=== PATIENT | male | born 1955 | race Caucasian/White ===

== ENCOUNTER 2016-06-08 09:47 | Emergency (ER) | payer MEDICARE, OTHER ==
[2016-06-08 10:34] VITALS: BP 124/78
--- NOTE | 2016-06-08 13:06 | UC ---
Respiratory Complaint HPI - HPI Summary HPI Summary: Patient here with . Complains of 1x week of congestion and cough. States congestion is primarily in his head but denies GAXIOLA. States he feels some sinus pressure but no pain. Coughing only at night. Patient has never been diagnosed with bronchitis or PNA. would like him to have an antibiotic because of his PMHx of diabetes. - History of Current Complaint Chief Complaint: UCRespiratory Stated Complaint: COUGH,CONGESTION Hx Obtained From: Patient Onset/Duration: Gradual Onset Timing: Constant Severity Initially: Moderate Severity Currently: Moderate Pain Intensity: 5 Pain Scale Used: 0-10 Numeric Character: Cough: Productive - green sputum Associated Signs And Symptoms: Positive: URI, Nasal Congestion, Sinus Discomfort - Risk Factors Pulmonary Embolism Risk Factors: Negative Cardiac Risk Factors: Diabetes Pseudomonas Risk Factors: Negative Tuberculosis Risk Factors: Diabetes - Allergies/Home Medications Allergies/Adverse Reactions: Allergies Allergy/AdvReac Type Severity Reaction Status Date / Time Lorazepam [From Ativan] Allergy Unknown tongue Verified 06/08/16 10:25 swelling? Metoclopramide [From Reglan] Allergy Unknown tongue Verified 06/08/16 10:25 swelling? Oxycodone AdvReac Intermediate GI Upset Verified 06/08/16 10:25 Prednisone AdvReac Intermediate GI Upset Verified 06/08/16 10:25 Home Medications: Home Medications Gabapentin CAP(*) [Neurontin 300 CAP(*)] 300 mg PO TID 06/08/16 [History Confirmed 06/08/16] PMH/Surg Hx/FS Hx/Imm Hx Previously Healthy: Yes Endocrine History Of: Reports: Diabetes - ON MEDS Denies: Thyroid Disease Cardiovascular History Of: Reports: Hypertension Denies: Cardiac Disorders, Pacemaker/ICD, Congestive Heart Failure Respiratory History Of: Denies: COPD, Asthma GI/ History Of: Denies: Ulcer, Kidney Stones, Renal Disease Psychological History Of: Reports: Anxiety, Depression - Surgical History Surgical History: Yes Surgery Procedure, Year, and Place: VASECTOMY - Family History Known Family History: Positive: Diabetes - MOTHER AND FATHER - Social History Occupation: Unemployed Lives: With Family Alcohol Use: None Substance Use Type: None Smoking Status (MU): Never Smoked Tobacco - Immunization History Most Recent Influenza Vaccination: Fall 2013 Most Recent Tetanus Shot: up to date Most Recent Pneumonia Vaccination: up to date Review of Systems Constitutional: Negative Skin: Negative Eyes: Negative ENT: Sore Throat, Nasal Discharge Respiratory: Cough Cardiovascular: Negative Gastrointestinal: Negative Motor: Negative Musculoskeletal: Negative Neurological: Negative All Other Systems Reviewed And Are Negative: Yes Physical Exam Triage Information Reviewed: Yes Appearance: Well-Appearing, No Pain Distress, Well-Nourished Vital Signs: Initial Vital Signs Temp 98.1 F 06/08/16 10:29 Pulse 90 06/08/16 10:29 Resp 18 06/08/16 10:29 BP 124/78 06/08/16 10:29 Pulse Ox 98 06/08/16 10:29 Vital Signs Reviewed: Yes Eye Exam: Normal Eyes: Positive: Conjunctiva Clear ENT Exam: Normal ENT: Positive: Pharynx normal, Nasal drainage Dental Exam: Normal Neck exam: Normal Neck: Positive: Supple, Nontender, No Lymphadenopathy Respiratory Exam: Normal Respiratory: Positive: Chest non-tender, Lungs clear Cardiovascular Exam: Normal Musculoskeletal Exam: Normal Musculoskeletal: Positive: Strength Intact, ROM Intact Neurological Exam: Normal Psychological Exam: Normal Psychological: Positive: Normal Response To Family, Age Appropriate Behavior Diagnostic Evaluation - Laboratory O2 Sat by Pulse Oximetry: 98 Respiratory Course/Dx - Course Course Of Treatment: Patient and educated at length regarding antibiotic use. provider feels this is upper respiratory and viral in nature. lungs clear. mild symptoms x1 week and no history of PNA or bronchitis. patient discharged with specific return precautions, cough medication and cepacol tabs. encouraged patient to obtain a humidifier in the home and drink plenty of fluids. will follow up with PCP or return to is symptoms worsen and will obtain a chest xray at that time. timeline of typical viral infection infromation given to luis. patient agrees with plan. - Differential Dx/Diagnosis Differential Diagnosis/HQI/PQRI: Bronchitis, Influenza, Lower Resp Infection, Sinusitis Provider Diagnoses: URI - Physician Notification/Consults Instructed by Provider To: Have Pt Call For Appt. Discharge - Discharge Plan Condition: Stable Disposition: HOME Prescriptions: Dextromethorphan-Guaifenesin [Mucinex Dm Maximum Streng 60-1200 mg] 1 tab PO BID #20 tab MDD 2 Humidifiers [Humidifier 2 Gallon] 1 mis .SEE ORDER BEDTIME PRN #1 mis PRN Reason: Cough Menthol (Mouth-Throat) [Cepacol Sore Throat] 5.4 mg MT Q4HR #30 kana Patient Education Materials: Upper Respiratory Infection (ED) Referrals: Jackson Oseguera MD [Primary Care Provider] - Additional Instructions: Humidifier in the home will help. take medications as prescribed to you. follow up with your PCP or come back to UC if symptoms fail to improve or worsen.
== END 2016-06-08 11:27 | disposition home or self-care (01) ==
LOC: UCCORT 09:47
DX: J06.9 Acute upper respiratory infection, unspecified (principal); E11.9 Type 2 diabetes mellitus without complications; I10 Essential (primary) hypertension; Z88.5 Allergy status to narcotic agent; Z88.8 Allergy status to other drugs, medicaments and biological substances
CPT/HCPCS: 99212; G0463

== ENCOUNTER 2016-06-11 10:11 | Emergency (ER) | payer MEDICARE, OTHER ==
[2016-06-11 12:04] VITALS: BP 139/85
--- NOTE | 2016-06-11 12:24 | UC ---
Eye Complaint HPI - HPI Summary HPI Summary: patient has had purulent drainage, eye redness and itching for 2 days. other mild cold symptoms as well. - History of Current Complaint Chief Complaint: UCEye Stated Complaint: EYE IRRITATION Time Seen by Provider: 06/11/16 12:10 Hx Obtained From: Patient Onset/Duration: Sudden Onset, Lasting Days Timing: Constant Severity Initially: Mild Severity Currently: Mild Pain Intensity: 3 Pain Scale Used: 0-10 Numeric Location of Injury: Conjunctiva, Sclera Character: Foreign Body Sensation Alleviating Factor(s): Nothing Associated Signs And Symptoms: Positive: Drainage (Purulent) - Risk Factors Penetrating Injury Risk Factor: Negative Globe Rupture Risk Factors: Negative Acute Glaucoma Risk Factors: Negative Optic Artery Occlusion Risk Factors: Negative - Allergies/Home Medications Allergies/Adverse Reactions: Allergies Allergy/AdvReac Type Severity Reaction Status Date / Time Lorazepam [From Ativan] Allergy Unknown tongue Verified 06/11/16 12:04 swelling? Metoclopramide [From Reglan] Allergy Unknown tongue Verified 06/11/16 12:04 swelling? Oxycodone AdvReac Intermediate GI Upset Verified 06/11/16 12:04 Prednisone AdvReac Intermediate GI Upset Verified 06/11/16 12:04 PMH/Surg Hx/FS Hx/Imm Hx Previously Healthy: Yes Endocrine History Of: Reports: Diabetes - ON MEDS Denies: Thyroid Disease Cardiovascular History Of: Reports: Hypertension Denies: Cardiac Disorders, Pacemaker/ICD, Congestive Heart Failure Respiratory History Of: Denies: COPD, Asthma GI/ History Of: Denies: Ulcer, Kidney Stones, Renal Disease Psychological History Of: Reports: Anxiety, Depression - Surgical History Surgical History: Yes Surgery Procedure, Year, and Place: VASECTOMY - Family History Known Family History: Positive: Diabetes - MOTHER AND FATHER - Social History Alcohol Use: None Substance Use Type: None Smoking Status (MU): Never Smoked Tobacco - Immunization History Most Recent Influenza Vaccination: Fall 2013 Most Recent Tetanus Shot: up to date Most Recent Pneumonia Vaccination: up to date Review of Systems Constitutional: Negative Skin: Negative Eyes: Drainage, Eye Redness ENT: Sore Throat, Nasal Discharge Respiratory: Cough Cardiovascular: Negative Gastrointestinal: Negative Genitourinary: Negative Motor: Negative Neurovascular: Negative Musculoskeletal: Negative Neurological: Negative Psychological: Negative All Other Systems Reviewed And Are Negative: Yes Physical Exam Triage Information Reviewed: Yes Appearance: No Pain Distress, Well-Nourished, Ill-Appearing Vital Signs: Initial Vital Signs Temp 97.9 F 06/11/16 11:57 Pulse 92 06/11/16 11:57 Resp 14 06/11/16 11:57 BP 139/85 06/11/16 11:57 Pulse Ox 97 06/11/16 11:57 Vital Signs Reviewed: Yes Eye Exam: Normal Eyes: Positive: Conjunctiva Inflamed, Discharge ENT Exam: Normal ENT: Positive: Pharyngeal erythema, Nasal congestion, Nasal drainage Dental Exam: Normal Neck: Positive: Supple, Nontender, No Lymphadenopathy Respiratory Exam: Normal Respiratory: Positive: Chest non-tender, Lungs clear, Normal breath sounds Cardiovascular Exam: Normal Cardiovascular: Positive: RRR, No Murmur, Pulses Normal Abdominal Exam: Normal Abdomen Description: Positive: Nontender, No Organomegaly, Soft Bowel Sounds: Positive: Present Musculoskeletal Exam: Normal Musculoskeletal: Positive: Strength Intact, ROM Intact, No Edema Neurological Exam: Normal Neurological: Positive: Alert, Muscle Tone Normal Psychological Exam: Normal Skin Exam: Normal Eye Complaint Course/Dx - Course Course Of Treatment: history obtained, exam performed, medications prescribed. - Differential Dx/Diagnosis Differential Diagnosis/HQI/PQRI: Conjunctivitis, Foreign Body, Periorbital Cellulitis, Orbital Cellulitis Provider Diagnoses: left eye bacterial conjunctivitis. pharyngitis Discharge - Discharge Plan Condition: Stable Disposition: HOME Prescriptions: Erythromycin OPHTH.OINT* [Ilotycin OPHTH.OINT*] 1 applic LEFT EYE TID #1 tube Patient Education Materials: Conjunctivitis (ED) Additional Instructions: Take the medication as prescribed. for 5 days. If symptoms appear in the right eye, please start using in the right eye as well. Follow up for any increase in symptoms even with treatment.
== END 2016-06-11 12:32 | disposition home or self-care (01) ==
LOC: UCCORT 10:11
DX: H10.89 Other conjunctivitis (principal); J02.9 Acute pharyngitis, unspecified; Z88.5 Allergy status to narcotic agent; Z88.8 Allergy status to other drugs, medicaments and biological substances; E11.9 Type 2 diabetes mellitus without complications; I10 Essential (primary) hypertension
CPT/HCPCS: 99212; G0463

== ENCOUNTER 2016-09-15 20:33 | Emergency (ER) | payer MEDICARE ==
[2016-09-15 20:43] VITALS: BP 126/77
[2016-09-15 21:26] LABS: Hematocrit 40 % (42-52); Hemoglobin 13.3 g/dl (14.0-18.0); Mean Corpuscular HGB Conc 33 g/dl (31-36); Mean Corpuscular Hemoglobin 28 pg (27-31); Mean Corpuscular Volume 85 fL (80-94); Mean Platelet Volume 8 um3 (7.4-10.4); Red Cell Distribution Width 14 % (10.5-15); White Blood Count 10.4 10^3/ul (3.5-10.8)
[2016-09-15 21:40] LABS: Albumin 3.9 g/dL (3.2-5.2); BUN/Creatinine Ratio 16.7 (8-20); C Reactive Protein 1.68 mg/L (< 5.00); Calcium 9.2 mg/dL (8.6-10.3); EGFR African American 74.8 (>60); EGFR Non-African American 58.2 (>60); Globulin 2.9 g/dL (2-4); Potassium 4.2 mmol/L (3.5-5.0); Total Bilirubin 0.5 mg/dL (0.2-1.0); Total Protein 6.8 g/dL (6.4-8.9)
--- NOTE | 2016-09-15 21:51 | ED ---
Abdominal Pain/Male - HPI Summary HPI Summary: Patient presents with 5 days of RLQ and groin pain. He denies known trauma or incident, but knows he has a hernia he was told about years ago. He thought he was wearing his belt too tightly, so he loosened his belt and it didn't make a difference. He can not think of any heavy lifting he has done, and has not fallen. His pain is with movement and does not radiate. He denies fever, chills , N/V/D, urinary or bowel symptoms. He denies scrotal pain or penile discharge. He is sexually monogamous with his . His appetite is intact. He denies CP, SOB, or back pain. 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 Metoclopramide [From Reglan] Allergy Unknown tongue Verified 06/11/16 12:04 swelling? Oxycodone AdvReac Intermediate GI Upset Verified 06/11/16 12:04 Prednisone AdvReac Intermediate GI Upset Verified 06/11/16 12:04 PMH/Surg Hx/FS Hx/Imm Hx Endocrine/Hematology History: Reports: Hx Diabetes - ON MEDS Denies: Hx Thyroid Disease Cardiovascular History: Reports: Hx Hypercholesterolemia, Hx Hypertension Denies: Hx Congestive Heart Failure, Hx Pacemaker/ICD Respiratory History: Denies: Hx Asthma, Hx Chronic Obstructive Pulmonary Disease (COPD) GI History: Reports: Hx Diverticulosis, Hx Gastroesophageal Reflux Disease, Other GI Disorders - INTUSSUSEPTION 2006, 2013 Denies: Hx Crohn's Disease, Hx Ulcer History: Reports: Other Problems/Disorders - VASECTOMY Denies: Hx Kidney Stones, Hx Renal Disease Musculoskeletal History: Reports: Hx Arthritis - shoulders, Hx Back Problems, Other Musculoskeletal History - arthritis Denies: Hx Scoliosis Sensory History: Reports: Hx Contacts or Glasses - Reading Glasses Denies: Hx Hearing Aid Opthamlomology History: Reports: Hx Contacts or Glasses - Reading Glasses Neurological History: Reports: Other Neuro Impairments/Disorders - CHRONIC LBP, ARTHRITIS IN [place].SHOULDERS Denies: Hx Headaches Psychiatric History: Reports: Hx Anxiety, Hx Depression Denies: Hx Panic Disorder - Surgical History Surgery Procedure, Year, and Place: VASECTOMY Hx Anesthesia Reactions: No Infectious Disease History: No Infectious Disease History: Denies: Hx Clostridium Difficile, Hx Hepatitis, Hx Human Immunodeficiency Virus (HIV), Hx of Known/Suspected MRSA, Hx Shingles, Hx Tuberculosis, Hx Known/ Suspected VRE, Hx Known/Suspected VRSA, History Other Infectious Disease, Traveled Outside the in Last 30 Days - Family History Known Family History: Positive: Diabetes - MOTHER AND FATHER - Social History Occupation: Retired Lives: With Family Alcohol Use: None Substance Use Type: Reports: None Smoking Status (MU): Never Smoked Tobacco Review of Systems Negative: Fever, Chills Negative: Chest Pain Negative: Shortness Of Breath Positive: Abdominal Pain - RLQ Positive: no symptoms reported, other - groin All Other Systems Reviewed And Are Negative: Yes Physical Exam Triage Information Reviewed: Yes Vital Signs On Initial Exam: Initial Vitals Temp Pulse Resp BP Pulse Ox 97.7 F 92 16 126/77 99 09/15/16 20:35 09/15/16 20:35 09/15/16 20:35 09/15/16 20:35 09/15/16 20:35 Vital Signs Reviewed: Yes Appearance: Positive: Well-Appearing, Well-Nourished, Pain Distress Skin: Positive: Warm, Skin Color Reflects Adequate Perfusion, Dry, Soft Head/Face: Positive: Normal Head/Face Inspection Eyes: Positive: EOMI, NICKIE, Conjunctiva Clear ENT: Positive: Hearing grossly normal Respiratory/Lung Sounds: Positive: Clear to Auscultation, Breath Sounds Present Cardiovascular: Positive: RRR Abdomen Description: Positive: Nontender, Soft. Negative: CVA Tenderness (R), CVA Tenderness (L), Distended, Guarding, McBurney's Point Tenderness, Peritoneal Signs Bowel Sounds: Positive: Present Male Genital Exam: Positive: normal genitalia, no hernia, epididymal tenderness - right, inguinal tenderness - right. Negative: scrotum tenderness (R), scrotum tenderness (L), testicular tenderness (R), testicular tenderness (L) Musculoskeletal: Positive: Strength/ROM Intact. Negative: Edema Left, Edema Right Neurological: Positive: Sensory/Motor Intact, Alert, Oriented to Person Place, Time, NV Bundle Intact Distally Psychiatric: Positive: Affect/Mood Appropriate AVPU Assessment: Alert - Bubba Coma Scale Coma Scale Total: 15 Diagnostics - Vital Signs Vital Signs Temp Pulse Resp BP Pulse Ox 09/15/16 20:40 97.7 F 92 16 126/77 99 09/15/16 20:35 97.7 F 92 16 126/77 99 - Laboratory Lab Results: Lab Results 09/15/16 09/15/16 09/15/16 Range/Units 21:15 21:15 21:15 WBC 10.4 (3.5-10.8) 10^3/ul RBC 4.70 (4.0-5.4) 10^6/ul Hgb 13.3 L (14.0-18.0) g/dl Hct 40 L (42-52) % MCV 85 (80-94) fL MCH 28 (27-31) pg MCHC 33 (31-36) g/dl RDW 14 (10.5-15) % Plt Count 276 (150-450) 10^3/ul MPV 8 (7.4-10.4) um3 Neut % (Auto) 57.4 (38-83) % Lymph % (Auto) 29.1 (25-47) % [place] % (Auto) 9.3 H (1-9) % Eos % (Auto) 2.9 (0-6) % Baso % (Auto) 1.3 (0-2) % Absolute Neuts (auto) 5.9 (1.5-7.7) 10^3/ul Absolute Lymphs (auto) 3.0 (1.0-4.8) 10^3/ul Absolute Monos (auto) 1.0 H (0-0.8) 10^3/ul Absolute Eos (auto) 0.3 (0-0.6) 10^3/ul Absolute Basos (auto) 0.1 (0-0.2) 10^3/ul Absolute Nucleated RBC 0.01 10^3/ul Nucleated RBC % 0.1 Sodium 136 (133-145) mmol/L Potassium 4.2 (3.5-5.0) mmol/L Chloride 104 (101-111) mmol/L Carbon Dioxide 24 (22-32) mmol/L Anion Gap 8 (2-11) mmol/L BUN 21 (6-24) mg/dL Creatinine 1.26 H (0.67-1.17) mg/dL Est GFR ( Amer) 74.8 (>60) Est GFR (Non-Af Amer) 58.2 (>60) BUN/Creatinine Ratio 16.7 (8-20) Glucose 167 H (70-100) mg/dL Lactic Acid 2.6 H* (0.5-2.0) mmol/L Calcium 9.2 (8.6-10.3) mg/dL Total Bilirubin 0.50 (0.2-1.0) mg/dL AST 13 (13-39) U/L ALT 18 (7-52) U/L Alkaline Phosphatase 45 (34-104) U/L Troponin I 0.00 (<0.04) ng/mL C-Reactive Protein 1.68 (< 5.00) mg/L Total Protein 6.8 (6.4-8.9) g/dL Albumin 3.9 (3.2-5.2) g/dL Globulin 2.9 (2-4) g/dL Albumin/Globulin Ratio 1.3 (1-3) Amylase 61 (29-103) U/L Lipase 46 (11.0-82.0) U/L Result Diagrams: 09/15/16 21:15 09/15/16 21:15 Lab Statement: Any lab studies that have been ordered have been reviewed, and results considered in the medical decision making process. - Ultrasound No standard instances Ultrasound Interpretation: No Acute Changes Ultrasound Interpretation Completed By: Radiologist Abdominal Pain Fem Course/Dx - Course Course Of Treatment: Patient was unable to produce a urine sample since he voided just before he came to the ED. He has a follow-up appointment with his PCP on Sunday and has a relationship with Dr. Thomas as well. He understands to return to the ED if symptoms worsen. - Diagnoses Differential Diagnosis/HQI/PQRI: Appendicitis, Bowel Obstruction, Epididymitis, Prostatitis, Testicular Torsion, Urinary Tract Infection Provider Diagnoses: Right groin pain Discharge - Discharge Plan Condition: Stable Disposition: HOME Patient Education Materials: Groin Pain (ED) Referrals: Jackson Oseguera MD [Primary Care Provider] - Additional Instructions: Your ultrasound was negative for acute findings. Please follow-up with your PCP as scheduled on Sunday for further evaluation and discussion of treatment options. You can use 600mg of ibuprofen three times daily with meals for pain. Return to the emergency department if symptoms worsen.
--- NOTE | 2016-09-15 22:51 | RAD ---
Indication: Right groin pain. Real-time sonography of the scrotum was performed. The right testis measures 4.4 x 2.3 x 2.9 cm. No intratesticular masses are noted. Normal flow is noted in the right testis. The epididymis measures 8 x 13 mm. No hydrocele is noted. The left testis measures 4.5 x 2.4 x 3.0 cm. No intratesticular masses are noted. Normal flow is noted in the left testis. The left epididymis measures 10 x 10 mm. Trace left hydrocele is noted. IMPRESSION: No intratesticular masses or torsion is identified. Trace left hydrocele is noted.
== END 2016-09-16 00:08 | disposition home or self-care (01) ==
LOC: ED 20:33
DX: R10.31 Right lower quadrant pain (principal)
CPT/HCPCS: 36415; 76870; 80053; 82150; 83605; 83690; 84484; 85025; 86140; 99282

== ENCOUNTER 2016-10-13 08:30 | Day surgery (SDC) | payer MEDICARE ==
--- NOTE | 2016-10-05 15:52 | HP ---
PREOP HISTORY AND PHYSICAL: DATE OF ADMISSION/OPERATION: 10/13/16 [facility] CHIEF COMPLAINT: Locking and clicking of the left middle finger. HISTORY OF PRESENT ILLNESS: Michael is a 60-year-old male who complains of locking and clicking of his left middle finger for the past 2-1/2 years. He has had cortisone injections. These have given him relief, but they are no longer giving him lasting relief of his symptoms. He presents now for left middle finger trigger release. PAST MEDICAL HISTORY: Significant for back pain and cervical spondylosis as well as lumbar spondylosis, also ulnar nerve compression, anxiety, hypertension , gastroesophageal reflux disease, and type 2 diabetes. PAST SURGICAL HISTORY: Vasectomy. FAMILY HISTORY: Diabetes. SOCIAL HISTORY: He is currently out of work due to his back problem. He lives with his . He denies tobacco and alcohol use. REVIEW OF SYSTEMS: Negative for cephalic, cardiovascular, respiratory symptoms. Positive for reflux symptoms. Negative for genitourinary, skin, neurologic, hematologic symptoms. Positive for controlled diabetes and positive for back pain. Recently was scheduled to have back surgery, but the surgery was canceled. PHYSICAL EXAMINATION GENERAL: He is a healthy-appearing male, in minimal distress at rest. VITAL SIGNS: He is 68 inches tall, weighs 170 pounds, pulse 64, blood pressure 132/80, respirations 16, temperature 97.7. HEENT: Unremarkable. He has good range of motion of his neck with minimal pain. No masses are palpated. His eye movements are concentric. PULMONARY: His lungs are clear to auscultation. Good inspiratory effort. No wheezing. CARDIAC: Regular rate and rhythm. No murmurs. PERIPHERAL VASCULAR: He has palpable pulses and no peripheral edema. NEUROLOGIC: He is alert and oriented without focal deficit. EXTREMITY: He does ambulate with a bit of a limp due to his back problem. He has tenderness to A1 aminta of his left middle finger and locking in flexion. SKIN: Intact. Neurovascular function is intact in his left hand. IMPRESSION: Left middle finger trigger finger. PLAN: The plan is for left middle finger trigger finger release. The surgical procedure, risks, and benefits were explained to the patient today and he agrees to proceed. Prescription for Ultracet was sent to his pharmacy. We will see him back in followup 10 to 14 days postop. [id number]/[facility] #: [id number] [facility]
[~2016-10-13 08:30] MED LIST: Buffered Lidocaine 1% SYR 3ML* 3 ML/SYR SYRINGE INTRADERM ONE; DiMENhydriNATE IV* 50 MG/ML VIAL IV PUSH PRN; Famotidine IV* 10 MG/ML 2 ML (20 mg) IV ONE; Famotidine IV* 10 MG/ML 2 ML (20 mg) ONE; Ondansetron INJ* 2 MG/ML VIAL IV PRN; PROCHLORPERAZINE INJ 5 MG/ML 2 ML VIAL IV PRN; fentaNYL* 50 MCG/ML 2 ML VIAL (100 MCG VIAL) IV PRN
[2016-10-13] MEDS ORDERED: HYDROmorphone* 1 MG/ML 1 ML SYR ONE (09:01)
[2016-10-13] MEDS ORDERED: Midazolam* 1 MG/ML 2 ML VIAL (2 MG) ONE (09:02)
[2016-10-13] MEDS ORDERED: Lidocaine 1% INJ* 10 MG/ML 30 ML SDV ONE (10:00)
[2016-10-13] MEDS ORDERED: Propofol* 10 MG/ML 20 ML BTL IV PUSH ONE (10:56)
[2016-10-13] MEDS ORDERED: Lidocaine 2% PF * 5 ML VIAL ONE (10:56)
[2016-10-13] MEDS ORDERED: fentaNYL* 50 MCG/ML 2 ML VIAL (100 MCG VIAL) ONE ×2 (10:57)
[2016-10-13 11:03] VITALS: BP 124/76
--- NOTE | 2016-10-13 23:45 | OP ---
DATE OF OPERATION: 10/13/16 [facility] DATE OF : 53 SURGEON: Tenisha Welch MD KILN TRANSFER OPERATOR: LIN Cosme ANESTHESIOLOGIST: Gee Argueta MD ANESTHESIA: Local MAC. PRE-OP DIAGNOSIS: Left long finger trigger finger. POST-OP DIAGNOSIS: Left long finger trigger finger. OPERATIVE PROCEDURE: Left long finger trigger release. ESTIMATED BLOOD LOSS: Zero. TOURNIQUET TIME: About 10 minutes. INDICATIONS FOR PROCEDURE: Michael is a 60-year-old male who has long history of locking and pain in his left long finger. He presents for trigger finger release. DESCRIPTION OF PROCEDURE: The patient was brought to the operating room. He was given sedation anesthetic and a local infiltration of 10 cc of of 1% plain lidocaine. The skin of his left hand and forearm were prepped and draped in the usual sterile fashion. The hand and forearm were exsanguinated and the tourniquet elevated to 250 mmHg. A transverse incision was made, centered over the A1 aminta of the left long finger. We dissected through the subcutaneous tissue down to the A1 aminta. The digital neurovascular bundles were retracted by the retail event and sales assistant Margie Moreau. The A1 aminta was incised longitudinally completely releasing the flexor tendons, which were in good condition. The wound was irrigated and skin edges reapproximated with 4-0 nylon suture. The wound was dressed with Xeroform, 4x4, Webril, and an Sonido wrap. The patient tolerated the procedure well and was brought to the recovery room in good condition. [id number]/[facility] #: [id number] [facility]
== END 2016-10-13 11:16 | disposition home or self-care (01) ==
LOC: OREAST 08:30
PROVIDERS: ATTEND Orthopaedic Surgery
DX: M65.332 Trigger finger, left middle finger (principal); E11.9 Type 2 diabetes mellitus without complications; I10 Essential (primary) hypertension
CPT/HCPCS: J1170; J2001; J2250; J2704; J3010

== ENCOUNTER 2017-09-14 19:14 | Emergency (ER) | payer MEDICARE ==
[2017-09-14 20:44] VITALS: BP 124/77
[2017-09-14] MEDS ORDERED: DOXYcycline CAP(*) 100 MG PO ONE (21:02)
--- NOTE | 2017-09-14 21:05 | UC ---
UC General HPI - HPI Summary HPI Summary: pt is c/o a cough with chest congestion for 2 weeks. no hx asthma. no fever. not improving. - History of Current Complaint Stated Complaint: CHEST&SINUS FARRUKH, COUGH Time Seen by Provider: 09/14/17 20:34 Hx Obtained From: Patient Onset/Duration: Gradual Onset Timing: Constant Pain Intensity: 0 Aggravating: nothing Alleviating: nothing Associated Signs & Symptoms: Positive: Cough. Negative: Chest Pain, Fever - Allergy/Home Medications Allergies/Adverse Reactions: Allergies Allergy/AdvReac Type Severity Reaction Status Date / Time lorazepam Allergy Swelling Verified 09/14/17 20:48 metoclopramide [From Reglan] Allergy Swelling Verified 09/14/17 20:48 oxycodone AdvReac GI Upset Verified 09/14/17 20:48 prednisone AdvReac GI Upset Verified 09/14/17 20:48 Home Medications: Home Medications Atorvastatin Calcium [Lipitor] 40 mg PO DAILY 09/14/17 [History Confirmed ] Biotin [Ultra Biotin] 5 mg PO DAILY 09/14/17 [History Confirmed 09/14/17] Finasteride TAB* [Proscar TAB*] 5 mg PO DAILY 09/14/17 [History Confirmed ] PMH/Surg Hx/FS Hx/Imm Hx - Additional Past Medical History Additional PMH: spinal stenosis Endocrine History: Diabetes Cardiovascular History: Hypertension Psychological History: Anxiety - Surgical History Surgical History: Yes Surgery Procedure, Year, and Place: VASECTOMY IN MD OFFICE (NO ANESTHESIA). Hand surgery - Family History Known Family History: Positive: Diabetes - MOTHER AND FATHER - Social History Occupation: Disabled Lives: With Family Alcohol Use: None Substance Use Type: Prescribed Substance Use Comment - Amount & Last Used: PRN PAIN MEDS Smoking Status (MU): Never Smoked Tobacco - Immunization History Most Recent Influenza Vaccination: Fall 2013 Most Recent Tetanus Shot: up to date Most Recent Pneumonia Vaccination: up to date Vaccination Up to Date: Yes Review of Systems Constitutional: Negative Skin: Negative Eyes: Negative ENT: Negative Respiratory: Cough Cardiovascular: Negative Gastrointestinal: Negative Genitourinary: Negative Motor: Negative Neurovascular: Negative Musculoskeletal: Negative Neurological: Negative Psychological: Negative Is Patient Immunocompromised?: No All Other Systems Reviewed And Are Negative: Yes Physical Exam Triage Information Reviewed: Yes Appearance: Well-Appearing Vital Signs: Initial Vital Signs Temp 98.4 F 09/14/17 20:41 Pulse 89 09/14/17 20:41 Resp 16 09/14/17 20:41 BP 124/77 09/14/17 20:41 Pulse Ox 99 09/14/17 20:41 Vital Signs Reviewed: Yes Eyes: Positive: Conjunctiva Clear ENT: Positive: Pharynx normal, TMs normal. Negative: Nasal congestion, Nasal drainage Neck: Positive: Supple, Nontender, No Lymphadenopathy Respiratory: Positive: Normal breath sounds, Decreased breath sounds, Other: - cough is frequent and congested Cardiovascular: Positive: RRR, No Murmur Abdomen Description: Positive: Nontender, No Organomegaly, Soft Bowel Sounds: Positive: Present Musculoskeletal: Positive: ROM Intact Neurological: Positive: Alert Psychological: Positive: Age Appropriate Behavior Skin Exam: Normal Course/Dx - Course Course Of Treatment: pt ill x 2 weeks with no improvement thus will cover for rpesumptivebacterial infection. - Differential Dx - Multi-Symptom Provider Diagnoses: cough Discharge - Sign-Out/Discharge Documenting (check all that apply): Discharge - Discharge Plan Condition: Stable Disposition: HOME Prescriptions: Benzonatate CAP* [Tessalon 100 MG CAP*] 100 mg PO TID PRN #6 cap PRN Reason: Cough DOXYcycline CAP(*) [DOXYcycline 100MG CAP(*)] 100 mg PO BID #14 cap Patient Education Materials: Acute Cough (ED) Referrals: Jackson Oseguera MD [Primary Care Provider] - 5 Days - Billing Disposition and Condition Condition: STABLE Disposition: HOME
== END 2017-09-14 21:13 | disposition home or self-care (01) ==
LOC: UCCORT 19:14
DX: R05 Cough (principal); Z88.5 Allergy status to narcotic agent; Z88.8 Allergy status to other drugs, medicaments and biological substances
CPT/HCPCS: 99212; A9270-GY; G0463

== ENCOUNTER 2017-11-06 07:02 | Day surgery (SDC) | payer MEDICARE ==
--- NOTE | 2017-10-25 16:28 | HP ---
PREOPERATIVE HISTORY AND PHYSICAL: DATE OF SURGERY/ADMISSION: 11/06/17 DATE OF OFFICE VISIT/ENCOUNTER: 10/24/17 ATTENDING SURGEON: Tenisha Welch MD.* (DICTATED BY LIN MARISCAL) PROCEDURE: Right index finger trigger finger release. CHIEF COMPLAINT: Right index finger triggering. HISTORY OF PRESENT ILLNESS: This is a 61-year-old male, who complains of clicking and locking of his right index finger, this has been going on for several months now. He has had a cortisone injection in the past with minimal improvement. He has had trigger finger releases performed on other fingers and has had a good outcome. He is now interested in pursuing a trigger finger release of his right index finger. PAST MEDICAL HISTORY: 1. Back pain including cervical spondylosis and lumbar spondylosis. 2. Hypertension. 3. Anxiety. 4. GERD. 5. Diabetes. PAST SURGICAL HISTORY: 1. Left middle finger trigger finger release. 2. Vasectomy. MEDICATIONS: 1. Aspirin 81 mg daily. 2. B12 methylcobalamin 1000 mcg daily. 3. Clonazepam 0.5 mg 1 tab q.h.s. and a half-tab to one tab p.r.n. 4. Colestipol HCl daily. 5. Diclofenac sodium 50 mg 2 times a day. 6. Fish oil 1200 mg daily. 7. Gabapentin 300 mg 3 times a day. 8. Metformin HCl 1000 mg twice a day. 9. Omeprazole 40 mg 2 tabs daily. 10. Onglyza 5 mg daily. 11. Terbinafine HCl 1% apply to affected area. 12. Vitamin D3 daily. ALLERGIES: ATIVAN, OXYCODONE, PREDNISONE, REGLAN, reaction unknown. FAMILY MEDICAL HISTORY: Diabetes. SOCIAL HISTORY: He is not currently employed secondary to back problem. He denies tobacco use, recreational drug use, and does not drink alcohol. REVIEW OF SYSTEMS: General: Negative for fevers, chills or night sweats, unexplained weight loss, gain. No known anesthesia problems. HEENT: Negative for headache, lightheadedness, syncopal episodes, visual changes. Integumentary : Negative for abrasions, lesions, open wounds. Cardiothoracic: Negative for hypertension, chest pain, palpitations, edema. Respiratory: Negative for shortness of breath with exertion, chronic cough, wheezing. GI: Positive for reflux symptoms. Negative for nausea, vomiting, diarrhea, or constipation. : Negative for nocturia, urinary frequency, urgency, history of UTIs, kidney problems. Musculoskeletal: Positive for current complaint. Positive for chronic back pain. Neurological: Positive for anxiety. Negative for paresthesias, numbness, history of seizure or stroke. Endocrine: Negative for diabetes and thyroid issues. Hematologic: Negative for easy bruising, anemia, bleeding disorder, history of DVT. Infectious Disease: Negative for history of MRSA, hepatitis C, HIV. PHYSICAL EXAMINATION GENERAL: Well-developed, well-nourished 61-year-old male, in no acute distress. VITAL SIGNS: Height 5 feet 8 inches, weight 170 pounds. Pulse rate 68, blood pressure 120/74. HEENT: Normocephalic, atraumatic. Pupils are equal, round, and reactive to light and accommodation. Extraocular movements are intact. Throat is clear. NECK: Supple. No palpable lymph node. PULMONARY: Lungs are clear to auscultation bilaterally. No wheezes, rales, or rhonchi. CARDIOVASCULAR: Regular rate and rhythm. S1, S2. No murmurs, rubs, or gallops. No edema. ABDOMEN: Positive bowel sounds, soft, nontender. NEUROLOGIC: Alert and oriented x3. Cranial nerves II through XII are intact. Sensation is intact to light touch. MUSCULOSKELETAL: On exam of his right index finger, there is no visible swelling. He has tenderness to palpation at the A1 aminta and intermittent triggering with range of motion. Neurovascular function is intact. IMPRESSION: Right index finger trigger finger. PLAN: The patient is scheduled to undergo right index finger trigger finger release with Dr. Welch on 11/06/17. He will return to the office 10 days postop for followup and suture removal. A prescription for Ultracet was e- scribed to the patient's pharmacy for postoperative pain management. LIN MARISCAL [id number]/[facility] #: [id number] MTDD
[~2017-11-06 07:02] MED LIST changes: +Buffered Lidocaine 0.9% SYRIN* 5 ML/SYR SYRINGE INTRADERM ONE; -Buffered Lidocaine 1% SYR 3ML* 3 ML/SYR SYRINGE INTRADERM ONE; -DiMENhydriNATE IV* 50 MG/ML VIAL IV PUSH PRN; -Famotidine IV* 10 MG/ML 2 ML (20 mg) ONE; -Ondansetron INJ* 2 MG/ML VIAL IV PRN; -PROCHLORPERAZINE INJ 5 MG/ML 2 ML VIAL IV PRN; -fentaNYL* 50 MCG/ML 2 ML VIAL (100 MCG VIAL) IV PRN
[2017-11-06] MEDS ORDERED: Famotidine IV* 10 MG/ML 2 ML (20 mg) ONE (07:12)
[2017-11-06] MEDS ORDERED: Lidocaine 1% INJ* 10 MG/ML 30 ML SDV ONE (07:22)
[2017-11-06] MEDS ORDERED: Midazolam* 1 MG/ML 5 ML VIAL (5 MG) ONE (07:40)
[2017-11-06] MEDS ORDERED: fentaNYL* 50 MCG/ML 2 ML VIAL (100 MCG VIAL) ONE (07:40)
[2017-11-06] MEDS ORDERED: DiMENhydriNATE IV* 50 MG/ML VIAL IV PUSH PRN (08:16)
[2017-11-06] MEDS ORDERED: Naloxone* 0.4 MG/ML 1 ML VIAL IV PRN (08:16)
[2017-11-06] MEDS ORDERED: Acetaminophen TAB* 325 MG PO PRN (08:16)
[2017-11-06] MEDS ORDERED: Ketorolac INJ* 30 MG/ML 1 ML VIAL ONE (08:28)
[2017-11-06] MEDS ORDERED: Lidocaine 2% PF * 5 ML VIAL ONE (08:28)
[2017-11-06] MEDS ORDERED: Propofol* 10 MG/ML 20 ML BTL IV PUSH ONE (08:28)
[2017-11-06 08:55] VITALS: BP 118/73
--- NOTE | 2017-11-06 22:01 | OP ---
DATE OF OPERATION: 11/06/17 [facility] DATE OF : 53 SURGEON: Dr. Welch [employer] OPERATOR: LIN Cosme ANESTHESIA: Local MAC. PRE-OP DIAGNOSIS: Right index finger trigger finger. POST-OP DIAGNOSIS: Right index finger trigger finger. OPERATIVE PROCEDURE: Right index finger trigger release. ESTIMATED BLOOD LOSS: Zero. TOURNIQUET TIME: Approximately 10 minutes. INDICATIONS FOR PROCEDURE: Michael is a 62-year-old female with triggering and locking of his right index finger. He has had good relief in the past with trigger finger releases on other fingers. He presents with the same on the right index finger. DESCRIPTION OF PROCEDURE: The patient was brought to the operating room, was given a sedation anesthetic and a local infiltration of 10 cc of 1% plain lidocaine overlying the A1 aminta of the right index finger. The skin of the right hand and forearm was prepped and draped in the usual sterile fashion. The hand and forearm were exsanguinated and the tourniquet elevated to 250 mmHg. A transverse incision was made centered over the A1 aminta of the right index finger. We dissected bluntly through the subcutaneous tissue down to the aminta. The digital neurovascular bundles were retracted by the medical surgical tech, LIN Cosme. The A1 aminta was then incised longitudinally, completely releasing the flexor tendons, which were in excellent. The aminta was very thickened. There was no tenosynovitis surrounding the tendons. The wound was irrigated and the skin edges were reapproximated with 4-0 nylon sutures. The wound was dressed with Xeroform, 4x4, Webril, and an Sonido wrap. The patient tolerated the procedure well and was brought to the recovery room in good condition. [id number]/[facility] #: [id number] MTDD
== END 2017-11-06 09:06 | disposition home or self-care (01) ==
LOC: OREAST 07:02
PROVIDERS: ATTEND Orthopaedic Surgery
DX: M65.321 Trigger finger, right index finger (principal); E11.9 Type 2 diabetes mellitus without complications; Z79.84 Long term (current) use of oral hypoglycemic drugs; I10 Essential (primary) hypertension; F41.9 Anxiety disorder, unspecified; K21.9 Gastro-esophageal reflux disease without esophagitis; M54.9 Dorsalgia, unspecified; M54.2 Cervicalgia
CPT/HCPCS: J1885; J2250; J2704; J3010

== ENCOUNTER 2018-01-25 08:55 | Day surgery (SDC) | payer MEDICARE ==
--- NOTE | 2018-01-16 12:55 | HP ---
Amended report to enter cosigning physician. PREOPERATIVE HISTORY AND PHYSICAL: DATE OF SURGERY/ADMISSION: 01/25/18 DATE OF OFFICE VISIT/ENCOUNTER: 01/02/18 ATTENDING SURGEON: Tenisha Welch MD* (dictated by LIN Cosme). PROCEDURE: Left index finger trigger finger release. CHIEF COMPLAINT: Left index finger triggering. HISTORY OF PRESENT ILLNESS: This is a 62-year-old male who complains of clicking and locking of his left index finger that has been going on for several months now. He recently had a right index finger trigger release and has had other trigger releases on other fingers and has had a good outcome with all of them. He is now interested in persuing a trigger finger release of the left index finger. PAST MEDICAL HISTORY: 1. Back pain including cervical spondylosis and lumbar spondylosis. 2. Hypertension. 3. Anxiety. 4. GERD. 5. Diabetes. PAST SURGICAL HISTORY: 1. Right index finger trigger release. 2. Left middle finger trigger release. 3. Vasectomy. MEDICATIONS: 1. Aspirin 81 mg daily. 2. B12 methylcobalamin 1000 mcg daily. 3. Clonazepam 0.5 mg 1 tab at bedtime and half a tab to 1 tab p.r.n. 4. Colestipol HCl daily. 5. Diclofenac sodium 50 mg 2 times daily. 6. Fish oil 1200 mg daily. 7. Gabapentin 300 mg 3 times a day. 8. Metformin HCl 1000 mg twice a day. 9. Omeprazole 40 mg 2 times daily. 10. Onglyza 5 mg daily. 11. Terbinafine HCl 1% applied to affected area p.r.n. 12. Vitamin D3 daily. ALLERGIES: ATIVAN, OXYCODONE, PREDNISONE, REGLAN, reaction unknown. FAMILY MEDICAL HISTORY: Diabetes. SOCIAL HISTORY: The patient is not currently employed secondary to back problems. He denies tobacco use, recreational drug use, and does not drink alcohol. REVIEW OF SYSTEMS: General: Negative for fevers, chills, night sweats, unexplained weight loss/gain. No known anesthesia problems in the past. HEENT : Negative for headache, lightheadedness, syncopal episodes, visual changes. Integumentary: Negative for abrasions, lesions, open wounds. Cardiothoracic: Negative for hypertension, chest pain, palpitations, edema. Respiratory: Negative for shortness of breath with exertions, chronic cough, wheezing. GI: Positive for reflux symptoms, for nausea, vomiting, diarrhea, or constipation. : Negative for nocturia, urinary frequency, urgency, history of UTIs, or kidney problems. Musculoskeletal: Positive for current complaint. Positive for chronic back pain. Neurological: Positive for anxiety, negative for paresthesias, numbness, history of seizures, stroke. Endocrine: Negative for diabetes and thyroid issues. Hematologic: Negative for easy bruising, anemia, bleeding disorders, or history of DVT. Infectious Disease: Negative for history of MRSA, hepatitis C, or HIV. PHYSICAL EXAMINATION GENERAL: Well-developed, well-nourished 62-year-old male in no acute distress. VITAL SIGNS: Height 5 feet 8 inches, weight 170 pounds, pulse rate 70, blood pressure 124/68. HEENT: Normocephalic and atraumatic. Pupils are equal, round, and reactive to light and accommodation. Extraocular movements are intact. Throat is clear. NECK: Supple. No palpable lymph nodes. PULMONARY: Lungs are clear to auscultation bilaterally. No wheezes, rales, or rhonchi. CARDIOVASCULAR: Regular rate and rhythm. S1 and S2. No murmurs, rubs, or gallops. No edema. ABDOMEN: Positive bowel sounds. Soft and nontender. NEUROLOGIC: Alert and oriented x3. Cranial nerves II through XII are intact. Sensation is intact to light touch. MUSCULOSKELETAL: On exam of the left index finger, there is no visible swelling. There is tenderness to palpation at the A1 aminta and triggering with range of motion. Neurovascular function is intact. IMPRESSION: Left index finger trigger finger. PLAN/RECOMMENDATIONS: The patient is scheduled to undergo a left index finger trigger finger release with Dr. Welch on 01/25/18. He will return to the office 10 days postop for followup and suture removal. A prescription for Ultracet was e- scribed to the patient's pharmacy for postoperative pain management. LIN COSME [id number]/[facility] #: [id number] MTDD
[~2018-01-25 08:55] MED LIST changes: -Famotidine IV* 10 MG/ML 2 ML (20 mg) IV ONE
[2018-01-25] MEDS ORDERED: Lidocaine 1% INJ* 10 MG/ML 30 ML SDV ONE (10:38)
[2018-01-25] MEDS ORDERED: Lidocaine 2% PF * 5 ML VIAL ONE (10:56)
[2018-01-25] MEDS ORDERED: Propofol* 10 MG/ML 20 ML BTL IV PUSH ONE (10:56)
[2018-01-25] MEDS ORDERED: Naloxone* 0.4 MG/ML 1 ML VIAL IV PRN (10:58)
[2018-01-25 11:29] VITALS: BP 116/80
--- NOTE | 2018-01-26 01:26 | OP ---
DATE OF OPERATION: 01/25/18 [facility] DATE OF : 53 SURGEON: Tenisha Welch MD TABLE OPERATOR: LIN Cosme ANESTHESIA: Local MAC. PRE-OP DIAGNOSIS: Left index finger trigger. POST-OP DIAGNOSIS: Left index finger trigger. OPERATIVE PROCEDURE: Left index finger trigger release. INDICATION FOR PROCEDURE: Michael is a 62-year-old man with triggering and locking of his left index finger. He presents for release. ESTIMATED BLOOD LOSS: Zero. TOURNIQUET TIME: About 5 minutes. DESCRIPTION OF PROCEDURE: The patient was brought to the operating room and was given a sedation anesthetic and local infiltration of 10 cc of 1% plain lidocaine in the palm of his left hand overlying the A1 aminta and the index finger. The skin of his left hand and forearm was prepped and draped in the usual sterile fashion. The hand and forearm were exsanguinated and the tourniquet elevated to 250 mmHg. A transverse incision was made centered over the A1 aminta of the left index finger. We dissected bluntly through the subcutaneous tissue down to the A1 aminta. The aminta was incised longitudinally with the assistance of my school bus driver/teacher assistant, Margie Moreau and retracted the neurovascular bundles. The A1 aminta was completely divided longitudinally and there was minimal tenosynovitis, which was debrided. The wound was irrigated and the skin edges were reapproximated with 4-0 nylon suture. The wound was dressed with Xeroform, 4x4, Webril, and an Sonido wrap. The patient tolerated the procedure well and was brought to the recovery room in good condition. [id number]/[facility] #: [id number] [facility]IN[facility] INSANEGibran
--- NOTE | 2018-01-29 11:45 | OP ---
ADDENDUM TO OPERATIVE NOTE DATE OF OPERATION: 01/25/2018. The blank in the body of the note should read: The A1 aminta was completely divided longitudinally a nd there was minimal tenosynovitis, which was debrided. [id number]/[facility] #: [id number]
== END 2018-01-25 11:48 | disposition home or self-care (01) ==
LOC: OREAST 08:55
PROVIDERS: ATTEND Orthopaedic Surgery
DX: M65.322 Trigger finger, left index finger (principal); E11.9 Type 2 diabetes mellitus without complications; Z79.84 Long term (current) use of oral hypoglycemic drugs; K21.9 Gastro-esophageal reflux disease without esophagitis; F41.9 Anxiety disorder, unspecified; I10 Essential (primary) hypertension; M47.892 Other spondylosis, cervical region; M47.896 Other spondylosis, lumbar region
CPT/HCPCS: J2704